=== PATIENT | male | born 1965 | race Caucasian/White ===

== ENCOUNTER 2020-06-05 13:49 | Outpatient (REF) | payer OTHER, SELFPAY ==
[2020-06-05 15:48] LABS: Alanine Aminotransferase 19 U/L (0-40); Albumin Level 3.9 g/dL (3.5-5.0); Alkaline Phosphatase 81 U/L (39-117); Anion Gap 9 (12-20); Aspartate Amino Transferase 21 U/L (5-37); Bilirubin Total 0.6 mg/dL (0.0-1.0); Blood Urea Nitrogen 21 mg/dL (9-16); Calcium 8.4 mg/dL (8.4-10.2); Carbon Dioxide 31 mmol/L (22-29); Chloride 105 mmol/L (96-108); Estimated Glomerular Filt Rate > 60; Glucose Random 96 mg/dL (60-115); Potassium 4.2 mmol/l (3.3-5.1); Sodium 141 mmol/L (135-145); Total Protein 6.7 g/dL (6.5-8.0)
[2020-06-05 16:04] LABS: Prostate Specific Antigen Scr 0.61 ng/mL (<0.05-4.0)
== END 2020-06-05 13:50 | disposition home or self-care (01) ==
LOC: HO.LAB 13:49
PROVIDERS: PCP Internal Medicine; Visit Provider Internal Medicine
DX: E78.00 Pure hypercholesterolemia, unspecified (principal); N40.0 Benign prostatic hyperplasia without lower urinary tract symptoms
CPT/HCPCS: 80053; 84153

== ENCOUNTER → 2020-10-21 11:45 | Outpatient (BNVA) | payer OTHER, SELFPAY | PROVIDERS: PCP Internal Medicine; Visit Provider Surgery | DX: K40.90 Unilateral inguinal hernia, without obstruction or gangrene, not specified as recurrent (principal) | CPT/HCPCS: 99202 ==

== ENCOUNTER 2020-11-19 08:14 | Day surgery (SDC) | payer OTHER, SELFPAY ==
[2020-10-29 15:12] VITALS: BMI 20.2
--- NOTE | 2020-11-14 14:12 | P.CONAN_ITS ---
Documented by User: Rupal Aarti 11/14/20 14:16 HPI - Anesthesia Eval Consult details Narrative: 55yo M for Left Hernia Repair Inguinal with Mesh PMFSH Active Problems Active Problems: All Active Problems (Updated 10/21/20 @ 12:15 by Michael Whyte MD) Speech impairment (Acute) Hearing disorder (Acute) Hyperlipidemia (Acute) Left inguinal hernia (Acute) Past Medical History Medical History Hearing disorder Hyperlipidemia Left inguinal hernia Speech impairment Stroke Family History Family History Brother Diabetes mellitus Sister CVD (cardiovascular disease) Surgical History Surgical History History of prostate surgery Social History Social History Are you a primary critical care cns to a significant other at home: No Do you presently have visiting nurse or other home services: No Alcohol intake: former Smoking Status: Former smoker Smoking Quit Date: 30 yrs ago Use of substances other than those prescribed or required for medical reasons: No Have you been hit, kicked, punched, or otherwise hurt by someone within the past year? If so, by whom?: No Advance Directives: No Advance Directives Information Provided: No Advance Directives on File: No Recently lost weight without trying: No Meds Allergies Allergy/AdvReac Type Severity Reaction Status Date / Time No Known Allergies Allergy Verified 11/19/20 09:18 Home Medications Medication Instructions Recorded Confirmed Last Taken Type aspirin 81 mg tablet,delayed 81 mg PO DAILY 10/21/20 10/29/20 11/18/20 09:00 History release atorvastatin 80 mg tablet 80 mg PO BEDTIME 10/21/20 10/29/20 Unknown History Exam Exam Date and Time: November 14, 2020 1412 Height,Weight and Vital Signs: Height 5 ft 10 in Weight 63.957 kg Pertinent Lab Results Pertinent Lab Results: Laboratory Tests 06/05/20 14:05 Sodium 141 Potassium 4.2 Chloride 105 Carbon Dioxide 31 H BUN 21 H Creatinine 0.85 Assessment and Plan Assessment Anesthesia Assessment: Chart Reviewed Documented by User: Werner Tomas MD 11/19/20 11:02 [facility] Past Medical History Medical History Hearing disorder Hyperlipidemia Left inguinal hernia Speech impairment Stroke Family History Family History Brother Diabetes mellitus Sister CVD (cardiovascular disease) Surgical History Surgical History History of prostate surgery Social History Social History Are you a primary critical care cns to a significant other at home: No Do you presently have visiting nurse or other home services: No Alcohol intake: former Smoking Status: Former smoker Smoking Quit Date: 30 yrs ago Use of substances other than those prescribed or required for medical reasons: No Have you been hit, kicked, punched, or otherwise hurt by someone within the past year? If so, by whom?: No Advance Directives: No Advance Directives Information Provided: No Advance Directives on File: No Recently lost weight without trying: No Meds Allergies Allergy/AdvReac Type Severity Reaction Status Date / Time No Known Allergies Allergy Verified 11/19/20 09:18 Home Medications Medication Instructions Recorded Confirmed Last Taken Type aspirin 81 mg tablet,delayed 81 mg PO DAILY 10/21/20 10/29/20 11/18/20 09:00 History release atorvastatin 80 mg tablet 80 mg PO BEDTIME 10/21/20 10/29/20 Unknown History Exam Airway Mallampati Class: I TM Dist: >3cm Neck ROM: Full Loose/Missing/Broken Teeth: No Heart: RRR Lungs: NL Assessment and Plan Assessment Anesthesia Assessment: Anesthesia Plan Discussed and Chart Reviewed Final Anesthetic Review NPO: Yes ASA Class: III Final Preanesthetic Review: No Changes in Pt Med Stat, Meds/Allgs Chart Reviewed, Consent Obtained/Reviewed and Anes Risks/Benef Reviewed Patient Risk: High Procedure Risk: Low Anesthetic Plan Anesthetic Plan: GA Disposition: Standard PACU
[2020-11-19] VITALS (8 sets, daily range): BP systolic 115–134; BP diastolic 63–72; PULSE 60–76; RESP 16–18; TEMP 36.2–36.4; O2SAT 97–100
--- NOTE | 2020-11-19 08:20 | MHC.SHP ---
Pre-Procedural Eval Section B Chief Complaint: Left Inguinal hernia Allergies: Allergies Allergy/AdvReac Type Severity Reaction Status Date / Time No Known Allergies Allergy Verified 10/21/20 12:14 Plan I have reviewed the history and physical and performed a pertinent physical examination on my patient. No changes have occurred unless specified.
[2020-11-19] MEDS: Lactated Ringers 1,000 ML 100 ML IVCONT (09:30)
--- NOTE | 2020-11-19 11:26 | W.PM.OPN ---
Operative Note Operative Note Date of Service: 11/19/20 Narrative: Preop diagnosis: Left inguinal hernia Postop diagnosis: Left inguinal hernia, indirect Procedure: Repair of a left inguinal hernia with mesh Surgeon: Michael Whyte MD Glass Technician: None The patient is a 55-year-old male with a reducible mass on the left groin consistent with left inguinal hernia. He wanted to proceed with repair in view of symptoms. He understood the technique of the procedure as well as the risks, benefits, and alternatives. This were all reviewed with the patient the presence of a web designer developer. This was reinforced with him this morning as well at the preop area. He was brought to the operating room placed supine on table under general anesthesia via laryngeal mask airway. The left groin was prepped and draped in the swell sterile fashion. A surgical time-out was done. The patient received cefazolin 2 g IV preoperatively. A short left inguinal area incision was made on the skin using blade 15 along an imaginary line from the anterior superior iliac spine to the pubic ramus. This was carried down through the full-thickness of the skin and subcutaneous fat down to the fascia. We bluntly dissected the external oblique aponeurosis until I was able to define the external ring. I made an incision on the external oblique aponeurosis along its fibers using blade 15 and this was extended inferomedially to connect with external ring. At this point therefore the inguinal canal was entered. Hemostats were applied on the edges of divided aponeurosis. I bluntly dissected the underside of the aponeurosis to create a pocket for the mesh. I then bluntly dissected the spermatic cord and its contents using an index finger until I was able to pass a [place] drain around this. This Bee drain was used for retraction of the spermatic cord. I examined the spermatic cord and I was able to identify the vas deferens. I was able to identify sac at the anteromedial aspect. I gently dissected this off of the rest of cord contents and this was reduced throat the internal ring. This was therefore an indirect hernia. I reinforced the internal ring with a Prolene plug. The plug was secured to the shelving edge of the inguinal ligament laterally and the internal oblique superiorly and medially using its inner leaves with the Prolene 2-0 stitch repair. I reinforced the floor of the canal with a keyhole mesh. The tails of the mesh were passed around the cord at the level of internal ring and were secured with Prolene 2-0e sutures to shelving edge of the inguinal ligament, the internal oblique superiorly and medially, as well as the pubic ramus inferomedially. I copiously irrigated. We observed for hemostasis. Once hemostasis was ensured, I proceeded to then reappose the external oblique aponeurosis using Dexon 2-0 sutures to re-create the external ring. I reapposed the subcutaneous layer with Dexon 3-0 sutures. Skin closure was achieved with Dexon 4-0 subcutaneous sutures. Steri-Strips and dressings were applied. The incision was infiltrated with Marcaine 0.5% for postop analgesia the procedure was completed. The patient tolerated the procedure well. There were no complications noted. Initial and final counts of sponges and instruments were correct. Estimated blood loss about 15 cc The patient extubated without difficulty and transferred to the recovery room with stable vital signs.
--- NOTE | 2020-11-19 11:31 | PM.OP ---
Brief Operative Note Date of Service: 11/19/20 Pre-op diagnosis: Left inguinal hernia Post-op diagnosis: same (Indirect) Procedure: The pair of a left inguinal hernia with mesh and plug Surgeon: Michael Whyte MD Anesthesia: GLMA Estimated blood loss (mL): 15 Pathology: none sent Condition: stable Disposition: PACU
[2020-11-19] MEDS: oxyCODONE HCl Immed Release 5 MG TABLET PO (11:52)
[2020-11-19] MEDS: Acetaminophen 325 MG TABLET 650 MG PO (11:52)
[2020-11-19] MEDS: Ketorolac Tromethamine 15 MG/ML VIAL IVPUSH (11:53)
== END 2020-11-19 13:15 | disposition home or self-care (01) ==
PROVIDERS: PCP Internal Medicine; Visit Provider Surgery
PROC: (CPT 49505; principal; 2020-11-19 10:20)
DX: K40.90 Unilateral inguinal hernia, without obstruction or gangrene, not specified as recurrent (principal); H91.90 Unspecified hearing loss, unspecified ear; R47.9 Unspecified speech disturbances; Z87.891 Personal history of nicotine dependence; Z79.82 Long term (current) use of aspirin; Z79.899 Other long term (current) drug therapy
CPT/HCPCS: 49505; C1781; J0690; J1100; J1170; J1885; J2370; J2405

== ENCOUNTER → 2020-12-02 11:37 | Outpatient (BNVA) | payer OTHER, SELFPAY | PROVIDERS: PCP Internal Medicine; Referring Provider Internal Medicine; Visit Provider Surgery | DX: Z48.815 Encounter for surgical aftercare following surgery on the digestive system (principal); Z87.19 Personal history of other diseases of the digestive system | CPT/HCPCS: 99212 ==

== ENCOUNTER 2023-05-11 08:20 | Outpatient (AMB) | payer OTHER, SELFPAY ==
--- NOTE | 2023-05-11 08:35 | MHC.OFFVIS ---
Intake Vital Signs 05/11/23 08:36 Height 5 ft 10 in Weight 158 lb 8 oz BMI 22.7 BP 96/78 Blood Pressure Location Rt brachial Pulse 79 Pulse Source Pulse Oximeter Pulse Oximetry (%) 98 Oxygen Delivery Method Room Air Intake Visit Reasons: ENP-TIA Intake Note: Patient presents for new patient evaluation.Patient states no concerns today Allergies No Known Allergies Allergy (Verified 05/11/23 08:39) Medication List - Last Reconciled 05/11/23 by Loretta Rebolledo MD aspirin 81 mg PO DAILY atorvastatin 80 mg PO BEDTIME HPI HPI Comments History of Present Illness Details 57y/o right handed male who uses sign language comes for neurology evaluation.A visual designer was used for todays evaluation. 6 years ago while he was living in [place] he had an episode of dizziness( lightheadedness) and fell down . He was brought to the hospital and was told he had a possible stroke. He denies any double vision, weakness , numbness or speech issues. He was started on aspirin since then. No new neurological symptoms.No sleep issues. [facility] Medical History (Updated 05/11/23 @ 14:31 by Loretta Rebolledo MD) Stroke Speech impairment Hearing disorder Hyperlipidemia Left inguinal hernia Surgical History History of prostate surgery Family History Brother Diabetes mellitus Sister CVD (cardiovascular disease) Social History Are you a primary care specialist to a significant other at home: No Do you presently have visiting nurse or other home services: No Alcohol intake: never Patient Tobacco Use Status: Never used Tobacco Review of Systems Const Denies chills and Denies fever(s) Card Denies chest pain, Denies dyspnea and Denies dyspnea on exertion Resp Denies cough, Denies dyspnea and Denies dyspnea on exertion GI Denies hematochezia and Denies change in bowel habits Denies hematuria and Denies difficulty urinating Musc Denies back pain and Denies limited range of motion Neuro Denies focal weakness and Denies convulsions Psych Denies depression and Denies mood swings Physical Exam Vital Signs: Last Vital Signs Pulse 79 05/11/23 08:36 BP 96/78 05/11/23 08:36 Pulse Ox 98 05/11/23 08:36 Oxygen Delivery Method Room Air 05/11/23 08:36 BMI result Body Mass Index 22.7 Assessment & Plan Assessment & Plan (1) Stroke: Comment: H/o CVA Code(s): I63.9 - Cerebral infarction, unspecified Plan MRI brain to reevaluate Continue aspirin 81mg qd and atorvastatin 80mg QAD Risk factor reduction Orders: Orders MR head/brain wo con Today I63.9 - Cerebral infarction, unspecified Coding Level of Care Code New Pt Level 4 (66456) Diagnoses Stroke I63.9
[2023-05-11 08:36] VITALS: BP 96/78; PULSE 79; O2SAT 98; BMI 22.7
== END 2023-05-11 09:01 | disposition home or self-care (01) ==
PROVIDERS: Visit Provider Psychiatry & Neurology Neurology
DX: I69.398 Other sequelae of cerebral infarction (principal)
CPT/HCPCS: 99203

== ENCOUNTER → 2023-05-11 08:20 | Outpatient (BNVA) | payer OTHER, SELFPAY | PROVIDERS: Visit Provider Psychiatry & Neurology Neurology ==

== ENCOUNTER 2023-06-15 10:25 | Outpatient (REF) | payer OTHER, SELFPAY ==
--- NOTE | ~2023-06-15 | MR_ITS ---
EXAMINATION: MR BRAIN WITHOUT CONTRAST CLINICAL INFORMATION: Cerebral infarction. COMPARISON: None available. TECHNIQUE: Multiplanar, multisequence imaging of the brain was performed without intravenous contrast. FINDINGS: There is no acute infarction, mass, hemorrhage, or extra-axial collection. The ventricles, sulci, and basilar cisterns are normal in size and configuration. Mild patchy foci of T2/FLAIR hyperintensity are seen within the cerebral white matter, presumably chronic microangiopathic changes. The flow voids of the major intracranial arteries appear intact. The vertebrobasilar system appears hypoplastic likely related to the rib sawyer. The bones and extracranial soft tissues are unremarkable. MR/MR head/brain wo con IMPRESSION: No acute infarct, mass lesion, intracranial hemorrhage, or evidence of hydrocephalus.
== END 2023-06-15 10:26 | disposition home or self-care (01) ==
LOC: HO.MRI 10:25
PROVIDERS: Visit Provider Psychiatry & Neurology Neurology
DX: I63.9 Cerebral infarction, unspecified (principal)
CPT/HCPCS: 70551

== ENCOUNTER 2023-08-11 11:14 | Outpatient (AMB) | payer OTHER, SELFPAY ==
--- NOTE | 2023-08-11 11:42 | MHC.OFFVIS ---
Intake Vital Signs 08/11/23 11:44 Height 5 ft 10 in BP 110/70 Blood Pressure Location Rt brachial Position Sitting Pulse 79 Pulse Source Pulse Oximeter Pulse Oximetry (%) 96 Oxygen Delivery Method Room Air Intake Visit Reasons: 3 mo f/u for TIA-Conf Intake Note: Patient presents for follow up. Allergies No Known Allergies Allergy (Verified 08/11/23 11:43) HPI HPI Comments History of Present Illness Details 57 y/o male patient presents for follow up of TIA. [facility] boat designer utilized for the visit. The MRI report reviwed. -No acute infarct, mass, lesion, intracranial hemorrhage or evidence of hydrocephlaus noted. -Mild patchy foci of T2/FLAIR hyperintensity are seen within the cerebral white matter. Presumably chronic microangiopathic changes. 6 years ago while he was living in [place] he had an episode of dizziness(lightheadedness) and fell down. He was brought to the hospital and was told he had a possible stroke. He is on aspirin 81 mg and atorvastatin 80 mg q daily. Pt denies more episodes of dizziness. He had one episodes of occipital headache couple of months ago, but it is resolved and no more episodes of headache. Denies vistion changes or double vision. [facility] Medical History (Updated 05/11/23 @ 14:31 by Loretta Rebolledo MD) Stroke Speech impairment Hearing disorder Hyperlipidemia Left inguinal hernia Surgical History (Updated 08/11/23 @ 11:44 by YENY Brito) H/O hernia repair History of prostate surgery Family History Brother Diabetes mellitus Sister CVD (cardiovascular disease) Social History Are you a primary manager intensive care to a significant other at home: No Do you presently have visiting nurse or other home services: No Alcohol intake: never Patient Tobacco Use Status: Never used Tobacco Review of Systems Const All systems reviewed & are unremarkable except as noted in HPI and below Physical Exam Vital Signs: Last Vital Signs Pulse 79 08/11/23 11:44 BP 110/70 08/11/23 11:44 Pulse Ox 96 08/11/23 11:44 Oxygen Delivery Method Room Air 08/11/23 11:44 Const General: cooperative Nutritional Appearance: average body habitus Orientation/consciousness: patient oriented x3 Limitations: language barrier HEENT Other: deaf Neck Neck: Yes full ROM and Yes supple Resp Effort & Inspection: normal respiratory effort Neuro General: patient oriented x3, gait normal and moves all extremities Cranial nerves: Yes Bilaterally intact EOM present, Yes Normal facial strength present, Yes Midline tongue present, Yes Symmetric palate elevation present, Yes Ability to bilaterally rotate head present and Yes Ability to bilaterally elevate shoulders present Cognition (Neuro): normal cognition Gait exam (Neuro): Normal gait present Motor exam (neuro): 5/5 motor strength present throughout Psych Appearance: grossly normal Mental Status: mental status grossly normal Assessment & Plan Assessment & Plan (1) Stroke: Comment: H/o CVA Code(s): I63.9 - Cerebral infarction, unspecified Plan Continue aspirin 81mg qd and atorvastatin 80mg QAD Risk factor reduction Coding Level of Care Code Est Pt Level 3 (13128) Diagnoses Stroke I63.9
[2023-08-11 11:44] VITALS: BP 110/70; PULSE 79; O2SAT 96
== END 2023-08-11 12:00 | disposition home or self-care (01) ==
PROVIDERS: PCP Internal Medicine; Visit Provider Nurse Practitioner Family
DX: I69.398 Other sequelae of cerebral infarction (principal)
CPT/HCPCS: 99213

== ENCOUNTER → 2023-08-11 11:14 | Outpatient (BNVA) | payer OTHER, SELFPAY | PROVIDERS: PCP Internal Medicine; Visit Provider Nurse Practitioner Family | DX: Z86.73 Personal history of transient ischemic attack (TIA), and cerebral infarction without residual deficits (principal); Z79.82 Long term (current) use of aspirin | CPT/HCPCS: 99212 ==

== ENCOUNTER 2023-09-22 23:55 | Emergency (ER) | payer OTHER, SELFPAY ==
--- NOTE | ~2023-09-22 | CT_ITS ---
CT HEAD AND CERVICAL SPINE WITHOUT CONTRAST HISTORY: Status post fall, pain TECHNIQUE: Contiguous axial imaging was performed from the skull base to vertex without intravenous contrast. Sagittal and coronal reformatted images were obtained. CT images of the cervical spine were acquired without intravenous contrast. This CT examination was performed using dose optimization techniques as appropriate, variously including the following: *Automated exposure control *Adjustment of mA and/or kV according to patient size (this includes techniques or standardized protocols for targeted exams where dose is matched to indication/reason for exam; i.e. extremities or head) *Use of iterative reconstruction technique DLP: 940.19 mGy-cm COMPARISON: MRI brain 06/15/2023 FINDINGS: CT HEAD: The ventricles and sulci are normal in size and configuration without significant volume loss or hydrocephalus. No territorial loss of mantilla-white differentiation. No acute intracranial hemorrhage or extra-axial fluid collection. No mass lesion, significant mass effect, or herniation pattern. The orbits are grossly normal. Paranasal sinuses and mastoid air cells are well aerated. Osseous structures are intact. CT CERVICAL SPINE: No prevertebral soft tissue swelling. The craniocervical junction is intact. Vertebral body heights are normal. No evidence of acute osseous injury or traumatic posterior elements subluxation. Please note that CT is insensitive for evaluating spinal canal patency without intrathecal contrast. There is multilevel cervical spondylosis. Left-sided uncovertebral joint hypertrophy contributes to moderate to severe left C3-C4 neural foraminal stenosis. Normal appearance of the paraspinal soft tissues. Visualized lung apices are clear. Normal appearance of the thyroid gland. Horizontally impacted left posterior mandibular molar. Right posterior mandibular molar extraction socket. CT/CT cervical spine wo IV con IMPRESSION: 1. No CT evidence of acute intracranial injury. 2. No CT evidence of acute osseous injury in the cervical spine. 3. Left-sided uncovertebral joint hypertrophy contributes to moderate to severe left C3-C4 neural foraminal stenosis.
--- NOTE | ~2023-09-22 | CT_ITS ---
EXAMINATION: CT CHEST, ABDOMEN AND PELVIS WITHOUT CONTRAST CLINICAL INFORMATION: Trauma. Pain. COMPARISON: None available. TECHNIQUE: Multidetector volumetric CT imaging of the chest, abdomen and pelvis was done. Axial MIP volume rendering provided. Sagittal and coronal reformatted images were obtained. This CT examination was performed using dose optimization techniques as appropriate, variously including the following: *Automated exposure control *Adjustment of mA and/or kV according to patient size (this includes techniques or standardized protocols for targeted exams where dose is matched to indication/reason for exam; i.e. extremities or head) *Use of iterative reconstruction technique DLP: 782 mGy-cm FINDINGS: SEAT COVER INSTALLER: Unremarkable LUNGS: There is minimal atelectasis or scarring at the lung bases. The lungs are otherwise clear. MEDIASTINUM: The mediastinum is normal. CORONARY ARTERY CALCIFICATION: None visualized on this study. PLEURA: There is no pleural effusion. No pleural mass or thickening. AXILLA: No lymphadenopathy. LIVER, GALLBLADDER, AND BILIARY TREE: The liver is normal in size, shape, and attenuation. No focal hepatic lesion or biliary ductal dilatation is present. The gallbladder is normal in appearance. PANCREAS: Normal; no mass or surrounding fluid. SPLEEN: Normal size. No focal lesion. ADRENAL GLANDS: Normal; no mass. KIDNEYS AND URETERS: The kidneys are normal in size, shape, and attenuation. No hydronephrosis, hydroureter, or calculi. GASTROINTESTINAL TRACT: There are diverticula of the descending and the sigmoid colon with thickening of the proximal sigmoid colon with minimal adjacent infiltrative change. The appendix is visualized and is within normal limits. ABDOMINAL WALL: There is a minimal umbilical hernia containing fat. LYMPHOVASCULAR STRUCTURES: No lymphadenopathy. The aorta is normal in caliber. BLADDER: No focal mass or wall thickening seen. No bladder calculi. PELVIC VISCERA: Unremarkable. OSSEOUS STRUCTURES: There is mild bilateral hip degenerative change. CT/CT chest wo IV con IMPRESSION: 1. No evidence of acute traumatic injury in the chest, abdomen or pelvis. 2. Diverticulosis of the descending and sigmoid colon with thickening of the proximal sigmoid colon and minimal adjacent infiltrative change. This may be a chronic diverticular process. Correlation needed the possibility of acute mild diverticulitis. Fleischner guidelines were followed.
--- NOTE | ~2023-09-22 | CT_ITS ---
EXAMINATION: CT CHEST, ABDOMEN AND PELVIS WITHOUT CONTRAST CLINICAL INFORMATION: Trauma. Pain. COMPARISON: None available. TECHNIQUE: Multidetector volumetric CT imaging of the chest, abdomen and pelvis was done. Axial MIP volume rendering provided. Sagittal and coronal reformatted images were obtained. This CT examination was performed using dose optimization techniques as appropriate, variously including the following: *Automated exposure control *Adjustment of mA and/or kV according to patient size (this includes techniques or standardized protocols for targeted exams where dose is matched to indication/reason for exam; i.e. extremities or head) *Use of iterative reconstruction technique DLP: 782 mGy-cm FINDINGS: DIETITIAN THERAPEUTIC: Unremarkable LUNGS: There is minimal atelectasis or scarring at the lung bases. The lungs are otherwise clear. MEDIASTINUM: The mediastinum is normal. CORONARY ARTERY CALCIFICATION: None visualized on this study. PLEURA: There is no pleural effusion. No pleural mass or thickening. AXILLA: No lymphadenopathy. LIVER, GALLBLADDER, AND BILIARY TREE: The liver is normal in size, shape, and attenuation. No focal hepatic lesion or biliary ductal dilatation is present. The gallbladder is normal in appearance. PANCREAS: Normal; no mass or surrounding fluid. SPLEEN: Normal size. No focal lesion. ADRENAL GLANDS: Normal; no mass. KIDNEYS AND URETERS: The kidneys are normal in size, shape, and attenuation. No hydronephrosis, hydroureter, or calculi. GASTROINTESTINAL TRACT: There are diverticula of the descending and the sigmoid colon with thickening of the proximal sigmoid colon with minimal adjacent infiltrative change. The appendix is visualized and is within normal limits. ABDOMINAL WALL: There is a minimal umbilical hernia containing fat. LYMPHOVASCULAR STRUCTURES: No lymphadenopathy. The aorta is normal in caliber. BLADDER: No focal mass or wall thickening seen. No bladder calculi. PELVIC VISCERA: Unremarkable. OSSEOUS STRUCTURES: There is mild bilateral hip degenerative change. CT/CT abdomen pelvis wo IV con IMPRESSION: 1. No evidence of acute traumatic injury in the chest, abdomen or pelvis. 2. Diverticulosis of the descending and sigmoid colon with thickening of the proximal sigmoid colon and minimal adjacent infiltrative change. This may be a chronic diverticular process. Correlation needed the possibility of acute mild diverticulitis. Fleischner guidelines were followed.
[2023-09-23 00:03] VITALS: BP 121/72; BP 134/85; PULSE 70; PULSE 76; RESP 16; TEMP 36.8; O2SAT 97; O2SAT 98; BMI 22.9
--- NOTE | 2023-09-23 00:11 | PC.NURSE ---
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 pt biba from [place] reporting a fall outside of a store, pt reports tripping and falling on his right side, reports increasing right rib pain. pt denies loc, head strike and blood thinners. pt denies pain elsewhere at this time.
--- NOTE | 2023-09-23 01:55 | ED_ITS ---
HPI - Fall General Chief Complaint: Fall Stated Complaint: FALL W RIGHT SIDED RIB PAIN Time Seen by Provider: 09/23/23 01:42 Source: patient Mode of arrival: EMS Limitations: other (Deaf mute) History of Present Illness HPI Narrative: Patient is deaf mute, communication with the patient was obtained via [employer] translator and interpreter Patient comes to the emergency room complaining of a fall. Patient states that he landed on the right side of his body. Patient states that he felt something cracking from his ribs on the right side. Patient was able to get up and walk home. Patient states that he went to bed, when he tried to turn over to get comfortable, he was in a lot of pain, patient thinks he might have fractured a rib. Patient states that when he fell he landed on the right side of his body but landed 1st on his hands. Patient denies any wrist pain, denies hitting his head or losing consciousness, patient on blood thinners, denies abdominal pain. Related Data Home Medications Medication Instructions Recorded Confirmed aspirin 81 mg tablet,delayed 81 mg PO DAILY 10/21/20 05/11/23 release atorvastatin 80 mg tablet 80 mg PO BEDTIME 10/21/20 05/11/23 Previous Rx's Medication Instructions Recorded cyclobenzaprine 10 mg tablet 10 mg PO TID PRN muscle spasm #7 09/23/23 tabs ketorolac 10 mg tablet 10 mg PO TID PRN pain #10 tabs 09/23/23 Allergies Allergy/AdvReac Type Severity Reaction Status Date / Time No Known Allergies Allergy Verified 09/23/23 00:03 Review of Systems Review of Systems: Constitutional : No Weight loss, No Fever, No Chills, No Night Sweats, No Fatigue, No Malaise ENT/Mouth : No Hearing loss, No Ear Pain, No Nasal Congestion, No Sinus Pain, No Hoarseness, No sore throat, No Rhinorrhea, No Swallowing Difficulty Eyes: No Eye Pain, No Swelling, No Redness, No Foreign Body, No Discharge, No Vision Changes Cardiovascular : No Chest Pain, No SOB, No Dyspnea on Exertion, No Orthopnea, No Edema, No Palpitations Respiratory : No Cough, No Sputum, No Wheezing, No Smoke Exposure, No Dyspnea Gastrointestinal : No Nausea, No Vomiting, No Diarrhea, No Constipation, No abdominal Pain, No Hematochezia, No Melena Genitourinary : no irregular bleeding, No Dysuria, No Urinary Frequency, No Hematuria, No Urinary Incontinence, No Urgency, No Flank Pain, No Urinary Flow Changes, No Hesitancy Musculoskeletal : Right rib pain No joint pain, No Myalgias, No Joint Swelling Skin : No Skin Lesions, No rash Neuro : No Weakness, No Numbness, No Paresthesias, No Loss of Consciousness, No Dizziness, No Headache Psych : No Anxiety/Panic, No Depression, No SI/HI/AH/VH, No Social Issues, Heme/Lymph: No Bruising, No Bleeding,No Lymphadenopathy Endocrine : No Polyuria, No Polydipsia, No Temperature Intolerance [facility] Past Medical History Medical History Stroke Speech impairment Hearing disorder Hyperlipidemia Left inguinal hernia Surgical History (Updated 08/11/23 @ 11:44 by YENY Brito) H/O hernia repair History of prostate surgery Family History Family History Brother Diabetes mellitus Sister CVD (cardiovascular disease) Social History Social History Are you a primary client care representative to a significant other at home: No Do you presently have visiting nurse or other home services: No Alcohol intake: former Patient Tobacco Use Status: Never used Tobacco Smoked in Last 30 Days: No Use of substances other than those prescribed or required for medical reasons: No Advance Directives: No Advance Directives Information Provided: Yes Physical Exam Vital Signs: Vital Signs: Last Vital Signs Temp 98.0 F 09/23/23 03:14 Pulse 64 09/23/23 03:14 Resp 18 09/23/23 03:14 BP 108/61 09/23/23 03:14 Pulse Ox 98 09/23/23 03:14 O2 Del Method Room Air 09/23/23 03:14 BMI result Body Mass Index 22.9 Const: Other: Appearance: Alert. Oriented X3. No acute distress. Eyes: Pupils equal, round and reactive to light. ENT: Pharynx normal. Neck: Normal inspection. Neck supple. No lymph nodes noted. No crepitus CVS: Normal heart rate and rhythm. Pulses normal. Normal S1 and S2 Respiratory: No respiratory distress. Breath sounds normal. No Wheezing. No rales Abdomen: Soft and nontender. No rigidity. No distention. Skin: Skin warm and dry. Normal skin color. Normal skin turgor. No ecchymosis Musculoskeletal: Pain to palpation over the right side of the ribs Extremities: No lower extremity edema. No Lacerations. No Rash Neuro: Oriented X 3. No motor deficit. No sensory deficit. Moving all extremities. No slurred speech. CN 2 through 12 grossly intact Psych: calm, cooperative, normal affect Course Course Course Narrative: -CT scans ordered from triage, results pending. Medical Decision Making Medical Decision Making MDM Narrative: -my interpretation of x-ray of the chest: No obvious acute fracture. -patient likely has a rib contusion, costochondritis Differential Diagnosis Differential Diagnoses: The differential diagnosis associated with the presentation includes (Rib fracture, contusion, ) Admission/Observation Consideration of admission/observation: Escalation of care including admission/observation considered (Given patient's history and mechanism of injury, admission was considered) Independent Interpretation I performed an independent interpretation of an: CT Scan Radiology Impression Discussion of test interpretation with radiology: I have reviewed the radiologist's reading. Radiologist Impression: FINDINGS: LOAN CLOSER: Unremarkable LUNGS: There is minimal atelectasis or scarring at the lung bases. The lungs are otherwise clear. MEDIASTINUM: The mediastinum is normal. CORONARY ARTERY CALCIFICATION: None visualized on this study. PLEURA: There is no pleural effusion. No pleural mass or thickening. AXILLA: No lymphadenopathy. LIVER, GALLBLADDER, AND BILIARY TREE: The liver is normal in size, shape, and attenuation. No focal hepatic lesion or biliary ductal dilatation is present. The gallbladder is normal in appearance. PANCREAS: Normal; no mass or surrounding fluid. SPLEEN: Normal size. No focal lesion. ADRENAL GLANDS: Normal; no mass. KIDNEYS AND URETERS: The kidneys are normal in size, shape, and attenuation. No hydronephrosis, hydroureter, or calculi. GASTROINTESTINAL TRACT: There are diverticula of the descending and the sigmoid colon with thickening of the proximal sigmoid colon with minimal adjacent infiltrative change. The appendix is visualized and is within normal limits. ABDOMINAL WALL: There is a minimal umbilical hernia containing fat. LYMPHOVASCULAR STRUCTURES: No lymphadenopathy. The aorta is normal in caliber. BLADDER: No focal mass or wall thickening seen. No bladder calculi. PELVIC VISCERA: Unremarkable. OSSEOUS STRUCTURES: There is mild bilateral hip degenerative change. CT/CT chest wo IV con IMPRESSION: 1. No evidence of acute traumatic injury in the chest, abdomen or pelvis. 2. Diverticulosis of the descending and sigmoid colon with thickening of the proximal sigmoid colon and minimal adjacent infiltrative change. This may be a chronic diverticular process. Correlation needed the possibility of acute mild diverticulitis. Fleischner guidelines were followed. Critical Care Time Critical Care Time Critical Care Time: Yes Total Critical Care Time: 30 Attestation: I have personally provided critical care time. Time includes review of lab data, radiology results, discussion with consultants, and monitoring for potential decompensation. Intervention performed as documented. Discharge Plan Discharge Clinical Impression: Contusion of rib, Fall Patient Disposition: Home, Self-Care Instructions: Fall Prevention (ED), Rib Contusion (ED) Additional Instructions: Please follow-up with your primary care physician tomorrow. If you have any worsening or new symptoms, please return to the emergency room or call 911 Prescriptions: New ketorolac 10 mg tablet 10 mg PO TID PRN (Reason: pain) Qty: 10 0RF Rx Instructions: Do not use this medication with ibuprofen, Aleve, only Tylenol if needed cyclobenzaprine 10 mg tablet 10 mg PO TID PRN (Reason: muscle spasm) Qty: 7 0RF No Action atorvastatin 80 mg tablet 80 mg PO BEDTIME aspirin 81 mg tablet,delayed release (DR/EC) 81 mg PO DAILY
[2023-09-23 03:14] VITALS: BP 108/61; PULSE 64; RESP 18; TEMP 36.7; O2SAT 98
[2023-09-23] MEDS: Cyclobenzaprine HCl 5 MG TABLET PO (04:45)
[2023-09-23] MEDS: Ketorolac Tromethamine 60 MG/2 ML VIAL IM (04:45)
--- NOTE | 2023-09-23 04:52 | PC.NURSE ---
[employer]ank[employer] inspector at bedside to discuss pt discharge. pt medicated per sep for 10/10 right sided rib pain.
== END 2023-09-23 04:53 | disposition home or self-care (01) ==
PROVIDERS: Emergency Provider Emergency Medicine; PCP Internal Medicine
DX: S20.211A Contusion of right front wall of thorax, initial encounter (principal); W10.1XXA Fall (on)(from) sidewalk curb, initial encounter; E78.5 Hyperlipidemia, unspecified; Z86.73 Personal history of transient ischemic attack (TIA), and cerebral infarction without residual deficits; Z79.82 Long term (current) use of aspirin; Z79.02 Long term (current) use of antithrombotics/antiplatelets; Z79.899 Other long term (current) drug therapy; Y93.01 Activity, walking, marching and hiking; Y92.414 Local residential or business street as the place of occurrence of the external cause; Y99.9 Unspecified external cause status
CPT/HCPCS: 70450; 71250; 72125; 74176; 96372; 99284; J1885